=== PATIENT | male | born 1975 ===

== ENCOUNTER 2019-01-26 17:34 | Observation (INO) | payer OTHER ==
--- NOTE | 2019-01-26 18:18 | RAD ---
RADIOGRAPH CHEST 1 VIEW: DATE: 01/26/2019 HISTORY: 43-year-old male with hypertension and chest pain. FINDINGS: There is no airspace density, pulmonary edema, or pneumothorax. The lateral costophrenic angles are n ot effaced. IMPRESSION: No acute pulmonary findings.
[2019-01-26 18:51] LABS: #Basophils 0.1 thou/uL (0.0-0.2); #Eosinphils 0.2 thou/uL (0.0-0.7); #Lymphocytes 1.9 thou/uL (1.20-3.40); #Monocytes 0.4 thou/uL (0.11-0.59); #Neutrophils 5.5 thou/uL (1.40-6.50); %Basophils 0.6 % (0.0-1.0); %Eosinophils 2.2 % (0.0-10.0); %Lymphocytes 23.6 % (21.0-51.0); %Monocytes 5.3 % (0.0-10.0); %Neutrophils 68.3 % (42.0-75.0); Hemoglobin 15.1 g/dL (14.0-18.0); Mean Corpuscular HGB CONC 35.2 g/dL (32.0-36.0); Mean Corpuscular Hemoglobin 26.9 pg (27.0-31.0); Mean Corpuscular Volume 76.4 fL (78.0-98.0); Mean Platelet Volume 9.7 fL (7.4-10.4); Platelet Count 213 thou/uL (130-400); RBC Distribution Width 13.4 % (11.5-14.5); Red Blood Cell (RBC) Count 5.61 mill/uL (4.70-6.10)
[2019-01-26 19:12] LABS: ALT (SGPT) 40 U/L (8-55); AST (SGOT) 30 U/L (5-34); Albumin 4.5 g/dL (3.5-5.0); Alkaline Phosphatase 82 U/L (40-110); Anion Gap 15 mmol/L (10-20); BUN (Urea Nitrogen) 12 mg/dL (8.9-20.6); Bilirubin, Total 0.7 mg/dL (0.2-1.2); Calc. Creatinine Clearance 0 mL/min (70-130); Calcium 9.7 mg/dL (7.8-10.44); Carbon Dioxide 27 mmol/L (22-29); Chloride 101 mmol/L (98-107); Estimated GFR-MDRD 61; Globulin 2.9 g/dL (2.4-3.5); Glucose 88 mg/dL (70-105); Lipase 26 U/L (8-78); Protein, Total 7.4 g/dL (6.0-8.3); Sodium 140 mmol/L (136-145)
[2019-01-26 19:16] LABS: Potassium 2.6 mmol/L (3.5-5.1)
[2019-01-26] MEDS ORDERED: Potassium Chloride 20 MEQ TAB ONE (19:53)
[2019-01-27] MEDS ORDERED: Potassium Chloride 20 MEQ TAB PO SCH (00:30)
[2019-01-27] MEDS ORDERED: hydrALAZINE 20 MG/ML VIAL SLOW IVP PRN (00:31)
[2019-01-27 00:36] VITALS: BMI 34.2
[2019-01-27] MEDS ORDERED: Potassium Chloride 10 MEQ in Premix Bag 1 BAG IVPB SCH (01:00)
[2019-01-27 01:47] LABS: Anion Gap 13 mmol/L (10-20); BUN (Urea Nitrogen) 14 mg/dL (8.9-20.6); Calc. Creatinine Clearance 95 mL/min (70-130); Calcium 9.8 mg/dL (7.8-10.44); Carbon Dioxide 29 mmol/L (22-29); Chloride 103 mmol/L (98-107); Estimated GFR-MDRD 51; Glucose 100 mg/dL (70-105); Sodium 142 mmol/L (136-145)
[2019-01-27 01:51] LABS: Potassium 2.9 mmol/L (3.5-5.1)
[2019-01-27 06:08] LABS: Anion Gap 14 mmol/L (10-20); BUN (Urea Nitrogen) 12 mg/dL (8.9-20.6); Calc. Creatinine Clearance 105 mL/min (70-130); Calcium 9.7 mg/dL (7.8-10.44); Carbon Dioxide 26 mmol/L (22-29); Chloride 105 mmol/L (98-107); Estimated GFR-MDRD 57; Glucose 103 mg/dL (70-105); Potassium 3.1 mmol/L (3.5-5.1); Sodium 142 mmol/L (136-145)
[2019-01-27] MEDS ORDERED: Senokot S 8.6-50 MG TAB PO PRN (06:17)
[2019-01-27] MEDS: Enoxaparin Sodium 40 MG/0.4 ML SYRINGE SC SCH (07:59)
[2019-01-27] MEDS ORDERED: Lisinopril 20 MG TAB PO SCH ×2 (09:00)
[2019-01-27] MEDS ORDERED: Amlodipine 10 MG TAB PO SCH (09:00)
[2019-01-27] MEDS ORDERED: cloNIDine 0.1 MG TAB PO PRN (09:29)
[2019-01-27 10:03] LABS: Magnesium 2.3 mg/dL (1.6-2.6); Potassium 3.2 mmol/L (3.5-5.1)
[2019-01-27] MEDS: hydrALAZINE 20 MG/ML VIAL SLOW IVP PRN (13:02)
[2019-01-27] MEDS: Potassium Chloride 20 MEQ TAB PO SCH (15:50)
--- NOTE | 2019-01-27 16:02 | HP ---
PRIMARY CARE PHYSICIAN: None. CHIEF COMPLAINT: Elevated blood pressures. HISTORY OF PRESENT ILLNESS: Mr. Adams is a 43-year-old man, who is currently incarcerated, has a past medical history of hypertension, presents to the ED from care home due to an elevated blood pressure and headache, he had started noticing symptoms that started around two days ago and had gradually worsened. He states that he used to take lisinopril twice daily and also amlodipine daily; however, his home medications were changed in care home to lisinopril and hydrochlorothiazide once daily. He states that since this change, he has noticed that his blood pressure gradually increased. He had currently denied any fever, chills, any blurred vision, dizziness, any chest pain, palpitations, shortness of breath, abdominal pain, nausea, vomiting, or any syncope. He was also noted to have low potassium at 2.6, for which he was started on IV potassium replacement and rechecks showed that this has been improving to 2.9 and 3.1. The patient's blood pressure has also improved with the use of lisinopril and amlodipine, his headache has now resolved with no other symptoms at this time. REVIEW OF SYSTEMS: All other systems reviewed and found to be negative unless mentioned in HPI. PAST MEDICAL HISTORY: Hypertension. PAST SURGICAL HISTORY: Right eye surgery. PSYCHIATRIC HISTORY: None. SOCIAL HISTORY: The patient denies any alcohol, tobacco, or illicit drug use, he states that he does have a history of alcohol abuse, but has not had a drink in quite some time. KNOWN ALLERGIES: No known drug allergies. CURRENT HOME MEDICATIONS: 1. Lisinopril 20 mg daily. 2. Hydrochlorothiazide 50 mg daily. PHYSICAL EXAMINATION: VITAL SIGNS: Blood pressure 177/102, pulse 90, respirations are 14, temperature 98.3, and O2 saturation 94% on room air. GENERAL: The patient is awake, alert, and oriented x3. He is currently lying comfortably in bed, two guards are at bedside. HEENT: Atraumatic and normocephalic. Pupils are round and reactive to light. Extraocular muscles are intact. Moist mucous membranes noted. NECK: Soft and supple, trachea midline. CARDIOVASCULAR: Positive S1 and S2. Regular rate and rhythm. No murmur auscultated. RESPIRATORY: Clear to auscultation bilaterally. No wheezes, rales, or rhonchi. ABDOMEN: Soft and nontender, bowel sounds present. EXTREMITIES: Moves all extremities equal. Pedal and radial pulses 2+ bilaterally. No edema noted. The patient is in shackles per guards. NEUROLOGIC: Cranial nerves II through XII grossly intact. No focal deficits noted. Speech intact and normal. Gait not assessed. SKIN: Warm, dry, and intact. No rashes. No ulceration noted. PSYCHIATRIC: Good mood and affect. LABORATORY DATA: WBC 8.0, RBC 5.61, hemoglobin 15.1, hematocrit 42.9, and platelets are 213. Sodium 142, potassium 3.1, anion gap 14, BUN 12, creatinine 1.36, estimated GFR 57, glucose 103, magnesium 2.3. Troponin less than 0.010. Lipase 26. DIAGNOSTIC IMAGING: Portable chest x-ray showed no acute pulmonary findings. ASSESSMENT/PLAN: 1. Hypertension, monitor blood pressure and other vital signs closely. The patient will be treated with amlodipine and IV hydralazine for breakthrough along with oral clonidine 0.1 mg, his home dose of lisinopril and hydrochlorothiazide will be currently held at this time. 2. Acute kidney injury, for this reason, the patient's home dose of lisinopril and HCTZ will be held at this time and BMP will be rechecked in the morning. 3. Hypokalemia. A recheck of his potassium has shown that this is improved to 3.2 up from 2.6 on admission; however, he will be treated with oral potassium chloride 40 mEq b.i.d. and recheck BMP for the morning as ordered. 4. Deep venous thrombosis and gastrointestinal prophylaxis. CODE STATUS: Full code. DISPOSITION: Pending further workup, clinical findings, and patient's progress, the patient will likely be discharged back to care home tomorrow if his blood pressure and labs show improvement. Job ID: [id number]
[2019-01-27] MEDS: Acetaminophen 325 MG TAB PO PRN (20:04)
[2019-01-28 06:30] LABS: #Basophils 0.1 thou/uL (0.0-0.2); #Eosinphils 0.2 thou/uL (0.0-0.7); #Lymphocytes 1.9 thou/uL (1.20-3.40); #Monocytes 0.6 thou/uL (0.11-0.59); #Neutrophils 5.3 thou/uL (1.40-6.50); %Basophils 0.9 % (0.0-1.0); %Eosinophils 2.2 % (0.0-10.0); %Lymphocytes 23.3 % (21.0-51.0); %Monocytes 6.9 % (0.0-10.0); %Neutrophils 66.7 % (42.0-75.0); Hemoglobin 16.4 g/dL (14.0-18.0); Mean Corpuscular HGB CONC 35.7 g/dL (32.0-36.0); Mean Corpuscular Hemoglobin 27.5 pg (27.0-31.0); Mean Platelet Volume 10.2 fL (7.4-10.4); Platelet Count 207 thou/uL (130-400); RBC Distribution Width 13.8 % (11.5-14.5); Red Blood Cell (RBC) Count 5.97 mill/uL (4.70-6.10)
[2019-01-28 06:49] LABS: Anion Gap 15 mmol/L (10-20); BUN (Urea Nitrogen) 17 mg/dL (8.9-20.6); Calc. Creatinine Clearance 99 mL/min (70-130); Calcium 9.6 mg/dL (7.8-10.44); Carbon Dioxide 21 mmol/L (22-29); Chloride 109 mmol/L (98-107); Estimated GFR-MDRD 54; Glucose 103 mg/dL (70-105); Potassium 3.2 mmol/L (3.5-5.1); Sodium 142 mmol/L (136-145)
[2019-01-28] MEDS ORDERED: Potassium Chloride 20 MEQ TAB PO SCH (08:45)
[2019-01-28] MEDS ORDERED: NIFEdipine XL 60 MG TAB PO SCH ×2 (09:00→18:45)
[2019-01-28] MEDS: Enoxaparin Sodium 40 MG/0.4 ML SYRINGE SC SCH (09:07)
[2019-01-28] MEDS: Potassium Chloride 20 MEQ TAB PO SCH (09:07)
[2019-01-28] MEDS ORDERED: Lisinopril 20 MG TAB PO SCH (12:45)
[2019-01-28 12:53] LABS: Anion Gap 15 mmol/L (10-20); BUN (Urea Nitrogen) 18 mg/dL (8.9-20.6); Calc. Creatinine Clearance 105 mL/min (70-130); Calcium 9.9 mg/dL (7.8-10.44); Carbon Dioxide 20 mmol/L (22-29); Chloride 109 mmol/L (98-107); Estimated GFR-MDRD 57; Glucose 86 mg/dL (70-105); Potassium 4.2 mmol/L (3.5-5.1); Sodium 140 mmol/L (136-145)
[2019-01-28] MEDS: Acetaminophen 325 MG TAB PO PRN ×2 (15:09→22:40)
--- NOTE | 2019-01-28 15:51 | PDOC.HOSPP ---
- Subjective Encounter Date: 01/28/19 Encounter Time: 15:49 Subjective: 43 y/o male intermediate inmate admitted due to elevated BP associated with headache. found to have hypokalemia. headache has subsided. - Objective Vital Signs & Weight: Vital Signs (12 hours) Temp Pulse Resp BP BP Pulse Ox 01/28/19 14:31 182/96 H 01/28/19 12:23 164/100 H 01/28/19 12:00 98.4 F 106 H 20 180/117 H 98 01/28/19 08:00 98.8 F 85 20 174/98 H 96 01/28/19 04:41 98.3 F 91 16 140/59 L 95 Weight Weight 232 lb I&O: 01/27/19 01/28/19 01/29/19 06:59 06:59 06:59 Intake Total 698 480 Output Total 1000 Balance -302 480 Result Diagrams: 01/28/19 06:10 01/28/19 11:55 Additional Labs: Accuchecks 01/27/19 10:43 POC Glucose 119 H Hospitalist ROS - Medication Medications: Active Medications Generic Name Dose Route Start Last Admin Trade Name Freq PRN Reason Stop Dose Admin Acetaminophen 650 mg 01/27/19 06:17 01/28/19 15:09 Tylenol PO 650 mg Q4H PRN Administration Headache/Fever/Mild Pain (1-3) Enoxaparin Sodium 40 mg 01/27/19 09:00 01/28/19 09:07 Lovenox SC 40 mg 0900 JORDON Administration Hydralazine HCl 10 mg 01/27/19 12:49 01/27/19 13:02 Apresoline SLOW IVP 10 mg Q4H PRN Administration Hypertension Nifedipine 60 mg 01/28/19 09:00 01/28/19 09:07 Procardia Xl PO 60 mg DAILY JORDON Administration Potassium Chloride 40 meq 01/27/19 17:00 01/28/19 09:07 K-Dur PO 40 meq BID-WM JORDON Administration Sodium Chloride 10 ml 01/27/19 21:00 01/28/19 09:12 Flush - Normal Saline IVF Not Given Q12HR JORDON - Exam General Appearance: awake alert Eye: anicteric sclera ENT: normocephalic atraumatic Neck: supple, no JVD Heart: RRR Respiratory: no wheezes, no rales, no ronchi, normal chest expansion Gastrointestinal: soft, non-tender, non-distended, normal bowel sounds Extremities: no cyanosis, no edema Neurological: cranial nerve grossly intact, no focal deficits Psychiatric: normal affect, A&O x 3 Hosp A/P (1) Accelerated hypertension Code(s): I10 - ESSENTIAL (PRIMARY) HYPERTENSION Status: Acute (2) Hypokalemia Code(s): E87.6 - HYPOKALEMIA Status: Acute (3) Headache Code(s): R51 - HEADACHE Status: Acute (4) CKD (chronic kidney disease) stage 3, GFR 30-59 ml/min Code(s): N18.3 - CHRONIC KIDNEY DISEASE, STAGE 3 (MODERATE) Status: Acute - Plan Substitute amlodipine with nifedipine and tritrate same to get adequate BP control Continue lisinopril. DC hydrochlothiazide due to hypokalemia replete serum potassium with KCL. Monitor electrolytes. If hypokalemia persisted post discharge following discontinuation of thiazide diuretic, we should then evaluate for primary hyperaldosteronism. recheck renala function in the am.
[2019-01-28] MEDS: hydrALAZINE 20 MG/ML VIAL SLOW IVP PRN (16:58)
[2019-01-28] MEDS: Carvedilol 6.25 MG TAB PO SCH (22:36)
[2019-01-29 04:48] LABS: Albumin 4.4 g/dL (3.5-5.0); Anion Gap 16 mmol/L (10-20); BUN (Urea Nitrogen) 15 mg/dL (8.9-20.6); BUN/Creatinine Ratio 12.61; Calc. Creatinine Clearance 120 mL/min (70-130); Calcium 9.3 mg/dL (7.8-10.44); Carbon Dioxide 22 mmol/L (22-29); Chloride 107 mmol/L (98-107); Estimated GFR-MDRD 67; Glucose 102 mg/dL (70-105); Phosphorus 3.8 mg/dL (2.3-4.7); Sodium 142 mmol/L (136-145)
[2019-01-29 07:59] VITALS: BP 142/88; TEMP 99
[2019-01-29] MEDS: Potassium Chloride 20 MEQ TAB PO SCH ×2 (08:33→11:45)
[2019-01-29] MEDS: Carvedilol 6.25 MG TAB PO SCH (08:33)
[2019-01-29] MEDS: Enoxaparin Sodium 40 MG/0.4 ML SYRINGE SC SCH (08:33)
[2019-01-29] MEDS ORDERED: Potassium Chloride 20 MEQ TAB PO SCH (09:00)
[2019-01-29] MEDS ORDERED: NIFEdipine XL 60 MG TAB PO SCH (09:00)
[2019-01-29] MEDS ORDERED: Lisinopril 20 MG TAB PO SCH ×2 (09:00)
--- NOTE | 2019-01-29 12:16 | DIS ---
DATE OF ADMISSION: 01/27/2019 DATE OF DISCHARGE: 01/29/2019 DISCHARGE DIAGNOSES: 1. Accelerated hypertension. 2. Headache. 3. Severe and persistent hypokalemia. 4. Chronic kidney disease, stage 3. 5. Headache. 6. Possible primary hyperaldosteronism. 7. Acute kidney injury. HOSPITAL COURSE: A 43-year-old male patient admitted from the longterm due to worsening headache and elevated blood pressure. The patient was on amlodipine and lisinopril, but this was changed over to amlodipine to lisinopril and hydrochlorothiazide due to leg swelling. Blood pressure was found to be markedly elevated and the patient was treated with escalation of antihypertensives with improvement of blood pressure as well as headache. He, however, had persistent hypokalemia, hence diagnosis of primary hyperaldosteronism is considered and plasma aldosterone and renin activity levels were collected, but result was pending. The patient remained stable and was discharged back to the [facility] but was instructed to follow up in 10 days with repeat labs with a view to discuss and review plasma aldosterone and renin activity. PHYSICAL EXAMINATION: VITAL SIGNS: Temperature 99.0, pulse 91, respiratory rate 18, SpO2 of 96% on room air, and blood pressure is 142/88. GENERAL: Young male, in no distress. Afebrile. Anicteric. Acyanotic. HEENT: Normocephalic, atraumatic. Oral mucosa is moist. CARDIOVASCULAR: Regular rhythm and rate with normal heart sounds 1 and 2. RESPIRATORY: Good air entry bilaterally with no crackle or rhonchi or use of accessory muscles. GASTROINTESTINAL: Full, soft, nontender, nondistended with normal bowel sounds. EXTREMITIES: Grossly normal looking, atraumatic with no edema or erythema. CENTRAL NERVOUS SYSTEM: Conscious, alert, oriented x3 with appropriate mental status. Cranial nerves II through XII are grossly intact. PERTINENT LABS: Renal function panel today showed sodium 142, potassium 3.0, chloride 107, CO2 of 22, BUN 15, creatinine 1.19, glucose 102, calcium 9.3, phosphorus 3.8, and albumin 4.4. DISCHARGE DISPOSITION: Back to [facility]. DISCHARGE CONDITION: Improved. DISCHARGE MEDICATIONS: 1. Nifedipine 60 mg p.o. b.i.d. 2. Lisinopril 20 mg p.o. b.i.d. 3. Potassium chloride 20 mEq p.o. b.i.d. 4. Carvedilol 12.5 mg p.o. b.i.d. TIME SPENT: Discharge took about less than 30 minutes. Job ID: [id number]
[2019-02-01 12:09] LABS: Renin Activity 0.499 ng/mL/hr (0.167-5.380)
== END 2019-01-29 12:26 ==
LOC: ERS 17:34 → 2SW 01-27 00:18
PROVIDERS: ADMIT Internal Medicine; ATTEND Internal Medicine
DX: I12.9 Hypertensive chronic kidney disease with stage 1 through stage 4 chronic kidney disease, or unspecified chronic kidney disease (principal); N18.9 Chronic kidney disease, unspecified; N17.9 Acute kidney failure, unspecified; E87.6 Hypokalemia; R51 Headache; F10.11 Alcohol abuse, in remission; Z79.899 Other long term (current) drug therapy; Z91.018 Allergy to other foods
CPT/HCPCS: 36415; 36416; 71045; 80048; 80053; 80069; 82088; 83690; 83735; 84244; 84484; 85025; 93005; 94760; 96365; 96372; 96375; 96376; G0378; J0360; J1650; J3480

== ENCOUNTER 2019-02-16 16:04 | Emergency (ER) | payer OTHER | END 2019-02-16 16:59 | disposition home or self-care (01) | LOC: ERS 16:04 | DX: I10 Essential (primary) hypertension (principal) | CPT/HCPCS: 99283 ==